=== PATIENT | female | born 2000 | race Two or more races ===

== ENCOUNTER 2023-07-14 21:41 | Emergency (ER) | payer OTHER ==
[~2023-07-14] VITALS: Ht 152.4 cm; Wt 41.7 kg
[2023-07-14 22:19] VITALS: TEMP 98.4
[2023-07-14] MEDS ORDERED: HYDROCODONE/APAP 5/325MG TABLET ONE (22:25)
[2023-07-14] MEDS ORDERED: HYDROCODONE/APAP 5/325MG TABLET PO ONE (22:30)
[2023-07-14] MEDS ORDERED: KETO10TA2 PO (23:44)
[2023-07-14 23:57] VITALS: BP 118/84; O2SAT 99
== END 2023-07-14 23:58 | disposition home or self-care (01) ==
LOC: ER 21:50
DX: S09.90XA Unspecified injury of head, initial encounter (principal); W22.8XXA Striking against or struck by other objects, initial encounter; Y93.89 Activity, other specified; Y92.89 Other specified places as the place of occurrence of the external cause; Y99.8 Other external cause status
CPT/HCPCS: 70450-TC; 70486-TC